=== PATIENT | male | born 1950 | race Caucasian/White ===

== ENCOUNTER 2024-01-20 06:32 | Inpatient (IN) | payer MEDICARE, BC ==
[2024-01-11 12:50] LABS: ALANINE AMINOTRANSFERASE 24 U/L (12-78); ALBUMIN 3.8 G/DL (3.4-5.0); ALKALINE PHOSPHATASE 80 IU/L (46-116); ANION GAP 3 (8-16); ASPARTATE AMINO TRANSFERASE 27 U/L (10-37); BILIRUBIN,TOTAL 0.8 MG/DL (0.1-1.0); BLOOD UREA NITROGEN 15 MG/DL (7-18); BUN/CREATININE RATIO 13.3 (10.0-20.0); CALCIUM 8.6 MG/DL (8.5-10.1); CHLORIDE 103 MMOL/L (99-107); CREATININE 1.13 MG/DL (0.60-1.10); GLUCOSE 99 MG/DL (70-104); POTASSIUM 4.5 MMOL/L (3.5-5.1); SODIUM 137 MMOL/L (135-145); TOTAL CARBON DIOXIDE 31.2 MMOL/L (24-32); TOTAL PROTEIN 7.8 G/DL (6.4-8.2); eGFR 64 ML/MIN
[2024-01-11 12:56] LABS: BASOPHILS % (AUTO) 0.3 % (0-1); EOSINOPHILS # (AUTO) 0.1 X10'3 (0-0.9); EOSINOPHILS % (AUTO) 1.1 % (0-6); HEMATOCRIT 42.8 % (42.0-52.0); HEMOGLOBIN 14.7 g/dl (14.0-17.9); LYMPHOCYTES # (AUTO) 1.2 X10'3 (1.1-4.8); LYMPHOCYTES % (AUTO) 13.7 % (21-51); MEAN CORPUSCULAR HEMOGLOBIN 31.1 PG (27.0-31.0); MEAN CORPUSCULAR HGB CONC 34.4 g/dL (33.0-36.5); MEAN CORPUSCULAR VOLUME 90.5 FL (78-98); MEAN PLATELET VOLUME 9.3 FL (7.4-10.4); MONOCYTES # (AUTO) 0.8 X10'3 (0-0.9); MONOCYTES % (AUTO) 9.1 % (2-12); NEUTROPHILS # (AUTO) 6.8 X10'3 (1.8-7.7); NEUTROPHILS % (AUTO) 75.8 % (42-75); PLATELET COUNT 204 X10'3 (140-440); RED BLOOD COUNT 4.73 X10'6 (4.70-6.10); RED CELL DISTRIBUTION WIDTH 14.1 % (11.5-14.5); WHITE BLOOD COUNT 8.9 X10'3 (4.5-11.0)
[2024-01-11 13:37] LABS: HEMOGLOBIN A1C 6.7 % (4.5-6.2)
[2024-01-20] VITALS (24 sets, daily range): BP systolic 96–144; BP diastolic 59–101; PULSE 68–126; RESP 12–24; TEMP 97.5–98.4; O2SAT 89–98
[~2024-01-20] VITALS: Ht 188 cm; Wt 111.6 kg
[2024-01-20] MEDS: tranexamic acid 1gm/0.7% sal. 100 ML IV ONE (05:30)
[2024-01-20] MEDS: DOCUMENT DATE & TIME OF BETA-BLOCKER PO ONE (05:30)
[2024-01-20] MEDS: ceFAZolin 2gm in dextrose, iso 50 ML IV ONE (05:30)
[~2024-01-20 06:32] MED LIST: APIX5TAB3 PO; ATOR20TA66 PO; METF-1203 PO; METO-395 PO
[2024-01-20] MEDS ORDERED: vancomycin 1,000mg inj ONE (07:15)
[2024-01-20] MEDS: famotidine 20mg tablet PO ONE (07:20)
[2024-01-20] MEDS: vancomycin 1,500 MG in NS 300ml IV soln IV ONE (07:33)
[2024-01-20] MEDS: ringers solution, lacted 1,000 ML IV SCH ×2 (07:33→08:10)
[2024-01-20] MEDS ORDERED: fentaNYL/PF 50MCG/1 ML 2ML syringe ONE (07:54)
[2024-01-20] MEDS ORDERED: MIDAZolam 1mg/ml 10ml vial ONE (07:54)
[2024-01-20] MEDS ORDERED: morphine 10mg/ml inj. ONE (07:55)
[2024-01-20] MEDS ORDERED: morphine /PF 1mg/ml 10ml inj. ONE (07:56)
[2024-01-20] MEDS ORDERED: naloxone 0.4 mg/ml inj IV PRN ×2 (08:10→11:55)
[2024-01-20] MEDS ORDERED: morphine 4 MG/ML inj SYRINge IV PRN (08:10)
[2024-01-20] MEDS ORDERED: morphine 2 MG/ML inj. syringe IV PRN (08:10)
[2024-01-20] MEDS ORDERED: enalaprilat dihydrate 2.5mg/2ml vial IV PRN (08:10)
[2024-01-20] MEDS ORDERED: meperidine/PF 25mg/ml syringe IV PRN ×3 (08:10)
[2024-01-20] MEDS ORDERED: proCHLORperazine 10 MG/2 ml inj IV PRN (08:10)
[2024-01-20] MEDS ORDERED: labetalol 20mg/4ml (5mg/ml) syringe IV PRN (08:10)
[2024-01-20] MEDS ORDERED: ondansetron/PF 4mg/2ml inj IV PRN ×3 (08:10→11:55)
[2024-01-20] MEDS ORDERED: naloxone 2mg/2ml inj 2 MG in normal saline 500ml IV soln 500 ML IV PRN (08:10)
[2024-01-20] MEDS ORDERED: diphenhydrAMINE 50 mg/ml inj IV PRN (08:10)
[2024-01-20] MEDS ORDERED: diphenhydrAMINE 50 mg/ml inj ONE (08:12)
[2024-01-20] MEDS ORDERED: propofol inj 20 ML IV ONE (11:40)
[2024-01-20] MEDS ORDERED: LIDOcaine 1%/PF 5ML 10 MG/ML VIAL ONE (11:40)
[2024-01-20] MEDS ORDERED: BUPIVAcaine/PF 7.5mg/ml (0.75%) 10ml vial ONE (11:40)
[2024-01-20] MEDS ORDERED: HYDROmorphone 1 mg/ml syringe IV PRN (11:55)
[2024-01-20] MEDS ORDERED: magnesium hydroxide 30ml (MOM) UD suspension PO PRN (11:55)
[2024-01-20] MEDS ORDERED: HYDROmorphone inj. 0.5 MG/0.5 ML DISP.SYRIN IV PRN (11:55)
[2024-01-20] MEDS ORDERED: diphenhydrAMINE 25mg capsule PO PRN ×2 (11:55)
[2024-01-20] MEDS ORDERED: bisacodyl 10mg suppository rectal RC PRN (11:55)
[2024-01-20] MEDS ORDERED: acetaminophen 325mg tablet PO PRN (11:55)
[2024-01-20] MEDS: gabapentin 300mg capsule PO SCH (13:42)
[2024-01-20] MEDS: ceFAZolin/D5W- 1GM premix 50 ML IV SCH (16:19)
[2024-01-20] MEDS ORDERED: DEXTROSE 15 GM of carb/4 tabs (each vial/BOTTLE has 4 tablets) PO PRN ×2 (17:50)
[2024-01-20] MEDS ORDERED: glucagon, human recombinant 1mg kit SUBCUT PRN (17:50)
[2024-01-20] MEDS ORDERED: dextrose 50%-water 50ml dispensing syringe IV PRN ×2 (17:50)
[2024-01-20] MEDS: potassium Cl 20mEq in NS 1,000 ML IV SCH (17:54)
[2024-01-20] MEDS: metoprolol tartrate 50mg tablet PO ONE (18:50)
[2024-01-20] MEDS: metoprolol tartrate 1mg/ml inj IV ONE (19:16)
[2024-01-20] MEDS: LidoCAINE 2% Topical Jelly 11mL syringe (UROJET) TOP ONE (20:21)
[2024-01-20] MEDS: vancomycin/NS 1 GM ADD-VANTAGE 250 ML IV SCH (20:37)
[2024-01-20] MEDS: sennosides 8.6mg tablet PO SCH (20:43)
[2024-01-20] MEDS: INSULIN LISPRO 100 UNIT/ML INSULN.PEN MULTI-DOSE SQ SCH (20:43)
[2024-01-21] VITALS (19 sets, daily range): BP systolic 90–132; BP diastolic 54–78; PULSE 78–165; RESP 16–24; TEMP 97–99.6; O2SAT 79–99
[2024-01-21] MEDS: metoprolol tartrate 1mg/ml inj IV ONE ×4 (04:22→05:02)
[2024-01-21] MEDS: diltiazem 5mg/ml 5ml inj. IV ONE ×2 (05:36→05:38)
[2024-01-21] MEDS ORDERED: enoxaparin 40mg/0.4ml syringe SQ SCH (08:00)
[2024-01-21] MEDS ORDERED: metoprolol succinate 25mg (24-HOUR) SR. Tablet PO SCH (08:00)
[2024-01-21] MEDS: atorvastatin 20mg tablet PO SCH (08:47)
[2024-01-21] MEDS: metoprolol succinate 25mg (24-HOUR) SR. Tablet PO SCH (08:47)
[2024-01-21] MEDS: VANCOMYCIN 1GM 200ML H20 (PEG) 200 ML IV SCH (08:47)
[2024-01-21] MEDS: enoxaparin 40mg/0.4ml syringe SQ SCH (08:48)
[2024-01-21] MEDS: oxyCODONE IR 5mg (immed. release) tablet PO PRN (08:54)
[2024-01-21 09:03] LABS: BASOPHILS % (AUTO) 0.2 % (0-1); EOSINOPHILS % (AUTO) 0 % (0-6); HEMATOCRIT 34.8 % (42.0-52.0); HEMOGLOBIN 11.7 g/dl (14.0-17.9); LYMPHOCYTES % (AUTO) 6.7 % (21-51); MEAN CORPUSCULAR HEMOGLOBIN 30.7 PG (27.0-31.0); MEAN CORPUSCULAR HGB CONC 33.6 g/dL (33.0-36.5); MEAN CORPUSCULAR VOLUME 91.2 FL (78-98); MEAN PLATELET VOLUME 9.4 FL (7.4-10.4); MONOCYTES # (AUTO) 1.6 X10'3 (0-0.9); MONOCYTES % (AUTO) 10.6 % (2-12); NEUTROPHILS # (AUTO) 12.2 X10'3 (1.8-7.7); NEUTROPHILS % (AUTO) 82.5 % (42-75); PLATELET COUNT 191 X10'3 (140-440); RED BLOOD COUNT 3.82 X10'6 (4.70-6.10); RED CELL DISTRIBUTION WIDTH 14.4 % (11.5-14.5); WHITE BLOOD COUNT 14.8 X10'3 (4.5-11.0)
[2024-01-21 09:29] LABS: MAGNESIUM 1.6 MG/DL (1.5-2.4); PHOSPHORUS 2.8 MG/DL (2.3-4.5); THYROID STIMULATING HORMONE 1.21 ulU/ml (0.34-4.50)
[2024-01-21] MEDS: magnesium sulf-water 2g/50mL 50 ML IV ONE (11:03)
[2024-01-21 11:16] LABS: ALANINE AMINOTRANSFERASE 23 U/L (12-78); ALBUMIN/GLOBULIN RATIO 0.9 (1.1-1.5); ALKALINE PHOSPHATASE 49 IU/L (46-116); ANION GAP 9 (8-16); ASPARTATE AMINO TRANSFERASE 32 U/L (10-37); BILIRUBIN,TOTAL 1.5 MG/DL (0.1-1.0); BLOOD UREA NITROGEN 21 MG/DL (7-18); BUN/CREATININE RATIO 16.7 (10.0-20.0); CHLORIDE 104 MMOL/L (99-107); CREATININE 1.26 MG/DL (0.60-1.10); GLUCOSE 181 MG/DL (70-104); POTASSIUM 4.1 MMOL/L (3.5-5.1); SODIUM 139 MMOL/L (135-145); TOTAL PROTEIN 6.2 G/DL (6.4-8.2); eCRCL 63 ML/MIN; eGFR 56 ML/MIN
[2024-01-21 11:21] LABS: BILIRUBIN,URINE NEGATIVE (Neg); CLARITY,URINE SLIGHTLY CLOUDY (Clear); COLOR,URINE YELLOW (Yellow); GLUCOSE, URINE 100 mg/dl (Neg); KETONES,URINE NEGATIVE (Neg); LEUKOCYTE ESTERASE ,URINE NEGATIVE (Neg); NITRITES, URINE NEGATIVE (Neg); OCCULT BLOOD,URINE LARGE (Neg); PH,URINE 5.5 (4.8-8.0); PROTEIN,URINE 30 mg/dl (Neg); UROBILINOGEN,URINE 0.2 E.U/dL (0.2-1.0)
[2024-01-21 11:25] LABS: UA COLLECTION TYPE FOLEY CATH
[2024-01-21 11:27] LABS: BACTERIA,URINE 1+ /HPF (Neg); FINE GRANULAR CAST 0-3 /LPF (NEGATIVE); HYALINE CASTS 0-3 /LPF (NEGATIVE); RBC,URINE TNTC /HPF (0-2); SQUAMOUS EPITHELIAL CELL,UR FEW /LPF (FEW)
[2024-01-21] MEDS: amiodarone 150mg/dext, iso-os 100 ML IV ONE (12:00)
[2024-01-21] MEDS: amiodarone 200mg tablet PO SCH (12:20)
[2024-01-21] MEDS ORDERED: amiodarone/D5 360MG/200ML BAG 200 ML IV SCH (13:00)
[2024-01-21] MEDS: CefTRIAXone/D5W-Rocephin 1gm 50 ML IV ONE (13:18)
[2024-01-21] MEDS: normal saline 1000ml 1,000 ML IV SCH (19:25)
[2024-01-21] MEDS: enoxaparin 30mg/0.3ml syringe SUBCUT SCH (20:19)
[2024-01-21] MEDS: enoxaparin 80mg/0.8ml syringe SUBCUT SCH (20:19)
[2024-01-21] MEDS: celeCOXIB 100mg capsule PO SCH (20:20)
[2024-01-22 06:00] VITALS: BP 120/72; PULSE 92; RESP 14; TEMP 98.3; O2SAT 97
[2024-01-22 06:56] LABS: BASOPHILS % (AUTO) 0 % (0-1); EOSINOPHILS % (AUTO) 0.1 % (0-6); HEMOGLOBIN 10.8 g/dl (14.0-17.9); LYMPHOCYTES # (AUTO) 0.7 X10'3 (1.1-4.8); LYMPHOCYTES % (AUTO) 4.7 % (21-51); MEAN CORPUSCULAR HEMOGLOBIN 30.7 PG (27.0-31.0); MEAN CORPUSCULAR HGB CONC 33.9 g/dL (33.0-36.5); MEAN CORPUSCULAR VOLUME 90.6 FL (78-98); MEAN PLATELET VOLUME 9.6 FL (7.4-10.4); MONOCYTES # (AUTO) 1.5 X10'3 (0-0.9); MONOCYTES % (AUTO) 10.4 % (2-12); NEUTROPHILS # (AUTO) 12.2 X10'3 (1.8-7.7); NEUTROPHILS % (AUTO) 84.8 % (42-75); PLATELET COUNT 145 X10'3 (140-440); RED BLOOD COUNT 3.53 X10'6 (4.70-6.10); RED CELL DISTRIBUTION WIDTH 14.1 % (11.5-14.5); WHITE BLOOD COUNT 14.4 X10'3 (4.5-11.0)
[2024-01-22 07:00] VITALS: O2SAT 96
[2024-01-22 07:23] LABS: ALANINE AMINOTRANSFERASE 20 U/L (12-78); ALBUMIN 2.7 G/DL (3.4-5.0); ALBUMIN/GLOBULIN RATIO 0.8 (1.1-1.5); ALKALINE PHOSPHATASE 50 IU/L (46-116); ANION GAP 5 (8-16); ASPARTATE AMINO TRANSFERASE 36 U/L (10-37); BILIRUBIN,TOTAL 1.4 MG/DL (0.1-1.0); BLOOD UREA NITROGEN 19 MG/DL (7-18); BUN/CREATININE RATIO 14.8 (10.0-20.0); CALCIUM 7.9 MG/DL (8.5-10.1); CHLORIDE 102 MMOL/L (99-107); CREATININE 1.28 MG/DL (0.60-1.10); GLUCOSE 153 MG/DL (70-104); POTASSIUM 4.1 MMOL/L (3.5-5.1); SODIUM 135 MMOL/L (135-145); TOTAL CARBON DIOXIDE 28.3 MMOL/L (24-32); TOTAL PROTEIN 6.1 G/DL (6.4-8.2); eCRCL 62 ML/MIN; eGFR 55 ML/MIN
[2024-01-22] MEDS: CefTRIAXone/D5W-Rocephin 1gm 50 ML IV SCH (07:31)
[2024-01-22] MEDS: lactose-reduced food (Ensure Enlive) - 237ml bottle PO SCH (07:33)
[2024-01-22] MEDS: magnesium sulf-water 2g/50mL 50 ML IV ONE (09:16)
[2024-01-22] MEDS: metoprolol tartrate 25mg tablet PO STA (09:16)
[2024-01-22] MEDS: oxyCODONE IR 5mg (immed. release) tablet PO PRN (09:58)
[2024-01-22 10:00] VITALS: BP 96/61; PULSE 88; RESP 20; TEMP 98.2; O2SAT 97
[2024-01-22 10:45] VITALS: BP 99/64; PULSE 83
[2024-01-22] MEDS ORDERED: acetaminophen 325mg tablet PO PRN (11:55)
[2024-01-22] MEDS ORDERED: CEFD300C3 PO (12:56)
[2024-01-22] MEDS ORDERED: METO50TA16 PO (12:56)
[2024-01-22] MEDS ORDERED: LACT1CAP26 PO (12:56)
[2024-01-22] MEDS ORDERED: FLO0.4C PO (12:58)
[2024-01-22] MEDS ORDERED: AMIO200T67 PO (12:58)
[2024-01-22 13:16] VITALS: RESP 14
[2024-01-22] MEDS ORDERED: metoprolol tartrate 25mg tablet PO SCH (20:00)
== END 2024-01-22 14:00 | disposition home health service (06) | DRG 470 ==
LOC: PAS IN 06:32 → ORTHO 4S 12:56
PROVIDERS: ADMIT Orthopaedic Surgery; ATTEND Orthopaedic Surgery
PROC: 5A09357 Assistance with Respiratory Ventilation, Less than 24 Consecutive Hours, Continuous Positive Airway Pressure (ICD-10-PCS; 2024-01-20)
PROC: 0SR903A Replacement of Right Hip Joint with Ceramic Synthetic Substitute, Uncemented, Open Approach (ICD-10-PCS; principal; 2024-01-20 08:12)
PROC: 5A09357 Assistance with Respiratory Ventilation, Less than 24 Consecutive Hours, Continuous Positive Airway Pressure (ICD-10-PCS; 2024-01-22)
DX: M16.11 Unilateral primary osteoarthritis, right hip (principal); N39.0 Urinary tract infection, site not specified; I10 Essential (primary) hypertension; E11.9 Type 2 diabetes mellitus without complications; I25.10 Atherosclerotic heart disease of native coronary artery without angina pectoris; I48.91 Unspecified atrial fibrillation; Z79.84 Long term (current) use of oral hypoglycemic drugs; Z79.01 Long term (current) use of anticoagulants; Z79.899 Other long term (current) drug therapy
CPT/HCPCS: 36415; 71045; 72170; 80053; 81001; 82948; 83036; 83735; 84100; 84443; 84484; 85025; 86885; 86900; 86901; 87081; 87088; 93005; 93306; 97110; 97116; 97161; 97530; A4215; A4314; A4615; A4618; A5200; A6449; A7000; A9272; C1776; C9250; G0378; J0282; J0690; J0696; J1200; J1650; J1815; J2250; J2274; J2704; J3010; J3370; J3372; J3480; J3490; J7030; J7120